=== PATIENT | female | born 1990 | race Caucasian/White ===

== ENCOUNTER 2018-07-09 19:43 | Emergency (ER) | payer MEDICAID ==
--- NOTE | 2018-07-09 19:55 | EDPHY ---
General - History Smoking Status: Never smoked Time Seen by Provider: 07/09/18 19:44 Narrative: CHIEF COMPLAINT: M1 hold HISTORY OF PRESENT ILLNESS: Patient arrives by EMS from the [facility] with reports of M1 hold due to depression and suicidal ideation. M1 was completed by the COOKIE BREAKER at their facility in states that she has been feeling suicidal due to recent loss of her brother. She says that she has felt very hopeless and wanting to and "I just want to join him."She denies any attempt to harm herself today. She does report methamphetamine use nearly 72 hr ago. She reports daily alcohol use and occasional oxycodone use. She does report previous use of Wellbutrin but does not know the formal diagnosis. She is very tearful but consolable. No other associated complaints or modifying factors PSYCHIATRIC DIAGNOSES: Unknown PRIOR PSYCHIATRIC EVALUATIONS: Unknown M1/DETAINER: Today at 3:45 p.m. By COOKIE BREAKER at [facility] REVIEW OF SYSTEMS: Ten systems reviewed and are negative unless otherwise noted in the HPI EXAMINATION General Appearance: Alert, no distress. Unkempt. Ambulatory Head: normocephalic, atraumatic Eyes: Pupils equal and round, no conjunctival pallor or injection ENT, Mouth: Mucous membranes moist Neck: Normal inspection, supple, non-tender Respiratory: Lungs are clear to auscultation Cardiovascular: Regular rate and rhythm Gastrointestinal: Abdomen is soft and nontender Back: non-tender, no bony abnormalities Neurological: GCS 15. A&O, nonfocal, normal gait Skin: Multiple tattoos and piercings. Warm and dry, no rash Extremities: Nontender, no pedal edema Psychiatric: Depressed Mood and affect. Tearful. Admits to suicidal ideation but does not disclose her plan. She does express intent to harm herself if left alone DIFFERENTIAL DIAGNOSES: Including but not limited to suicidal ideation, depression, PTSD, anxiety, grief response MDM: 7:50 p.m. M1 due to suicidal ideation and depression, filled out at the [facility]. Patient admits to these feelings but states that she does not want to act on them. She is asking for help repeatedly. She is calm and cooperative. No agitation or combative behavior. She does admit to methamphetamine use 48 hr ago as well as current alcohol use. Proceed with medical clearance. 8:59 p.m. Patient is medically cleared for evaluation at this time. 10:00 p.m. Patient has been evaluated and recommendation is that she be re-evaluated in the morning. I do feel this is reasonable 11:55 p.m. At this time I have discussed the case with Dr. Valles. He will assume care the patient at this time. Please see his note for final disposition SUPERVISION: Patient was independently examined, but I discussed the case with my secondary supervising physician Dr. Haynes and Dr. Valles. (Mateo,Derek) [id number] care assumed by me from MAYTE Galindo pending mental health evaluation. (Luiz Valles) Medical Decision Makin:30 a.m. the patient has been re-evaluated. She is calm. She denies suicidality. She is going to take a cab over to the outpatient substance abuse program. (Yonatan Haynes) - Objective Vital Signs: Initial Vital Signs Temperature (C) 36.7 C 07/09/18 19:51 Heart Rate 80 07/09/18 19:51 Respiratory Rate 16 07/09/18 19:51 Blood Pressure 117/73 07/09/18 19:51 O2 Sat (%) 97 07/09/18 19:51 O2 Delivery Mode Room Air Allergies/Adverse Reactions: ketorolac tromethamine [From Toradol] Allergy (Verified 12/12/15 18:44) Home Medications: Medication Instructions Recorded Wellbutrin Sr 07/09/18 traZODone 07/09/18 Laboratory Results: Laboratory Results 07/09/18 20:00 07/09/18 20:00 07/09/18 20:00 Sodium 136 mEq/L mEq/L (135-145) Potassium 3.4 mEq/L mEq/L (3.3-5.0) Chloride 100 mEq/L mEq/L (97-110) Carbon Dioxide 30 mEq/l mEq/l (22-31) Anion Gap 6 mEq/L L mEq/L (8-16) BUN 9 mg/dL mg/dL (7-23) Creatinine 0.5 mg/dL L mg/dL (0.6-1.0) Estimated GFR > 60 Glucose 79 mg/dL mg/dL (70-100) Calcium 8.6 mg/dL mg/dL (8.5-10.4) Salicylates < 1.0 mg/dL L mg/dL (2.0-20.0) Acetaminophen < 10 mcg/mL L mcg/mL (10-30) Ethyl Alcohol < 10 mg/dL mg/dL (0-10) Medications Given: Discontinued Medications Lorazepam (Ativan) 1 mg PO EDNOW ONE Stop: 07/10/18 00:50 Last Admin: 07/10/18 00:53 Dose: 1 mg Departure - Departure Disposition: Home, Routine, Self-Care Clinical Impression: Polysubstance abuse Condition: Fair Instructions: Polysubstance Abuse (ED) Referrals: NONE *PRIMARY CARE P,. [Primary Care Provider] - As per Instructions TLC,Coordinate [Mental Health Worker [facility]] - 2-3 days, call for appt.
[2018-07-09 20:19] LABS: PLATELET COUNT 257 10^3/uL (150-400)
--- NOTE | 2018-07-09 22:56 | ASMTLCPROG ---
Notes Note: Notes: TLC started MH evaluation. Pt verbalized inability to keep herself safe if discharged. Pt also made statement she has no place to go and is homeless. She was reluctant to answer questions and kept her eyes shut. Pt appeared alert and orientated but very disinterested. She focused on a variety of physical complaints and stated she is going through withdrawal Given pt.'s inability to express a desire or ability to keep herself safe and lack of cooperation to participate in treatment it would be beneficial to reassess pt in am when a better assessment can be made of pt.'s safety for d/c vs need for admission. Date Signed: 07/09/2018 10:55 PM Electronically Signed By:Verito Carballo
[2018-07-10] MEDS ORDERED: LORazepam 1 MG TAB PO ONE (00:49)
[2018-07-10 07:36] VITALS: BP 104/78
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
--- NOTE | 2018-07-10 09:23 | ASMTTCLDSP ---
TLC Discharge Disposition Disposition: Answers: Discharge If Answers: Yes DISCHARGED: Patient/family given suicide hotline info & SAMHSA brochure? Disposition Notes: Notes: Pt stated willingness to be cab transported to [facility] and commitment or ability to keep self safe, denied thoughts of self harm or harm to others. Pt expressed a desire to f/u with [facility]. Pt was given local hotline information and SAMHSA brochure After an Attempt and cabbed to [facility]. Discharge Concerns/Recommendations: Notes: In consultation with [facility] ED physician, Yonatan Haynes MD, Dr. Haynes concurred that pt does not appear to meet 27-65 criteria requiring psychiatric hospitalization as pt does not appear to be an imminent risk of harm to self/others/gravely disabled due to a mental illness condition. Dr. Haynes provided verbal order read back vacating M1 hold at 0830 hrs. Was patient given the Answers: Not applicable Inpatient Behavioral Health Prohibited Belongings List while in the ED? Psychiatrist vacating M1 Yontaan Haynes MD Hold: Date and time M1 hold 07/10/2018 08:30 AM vacated (time format is hh:mm): Type of Hold: Answers: M1/72-hour Hold Hold initiated by: Answers: Police Date Signed: 07/10/2018 09:22 AM Electronically Signed By:Henry Shafer
== END 2018-07-10 08:41 | disposition home or self-care (01) ==
LOC: EEVIPCON 19:43
DX: R45.851 Suicidal ideations (principal); F15.921 Other stimulant use, unspecified with intoxication delirium
CPT/HCPCS: 80305; G0480

== ENCOUNTER 2018-12-09 05:10 | Emergency (ER) | payer MEDICAID, OTHER ==
[2018-12-09] MEDS ORDERED: NS 1,000 ML IV ONE (05:14)
--- NOTE | 2018-12-09 05:18 | EDPHY ---
H & P Stated Complaint: syncope Source: Patient, EMS, Old records Exam Limitations: No limitations - Personal History Tetanus Vaccine Date: 2009 - Medical/Surgical History Hx Asthma: No Hx Chronic Respiratory Disease: No Hx Diabetes: No Hx Cardiac Disease: No Hx Renal Disease: No Hx Cirrhosis: No Hx Alcoholism: No Hx HIV/AIDS: No Hx Splenectomy or Spleen Trauma: No Other PMH: endometriosis, ovarian cysts, heart murmur ablation, cholecystectomy , SVT, gave nov 15, 2014. - Social History Smoking Status: Never smoked Time Seen by Provider: 12/09/18 05:14 HPI/ROS: HPI The patient presents with syncope, presenting brought in by ambulance from the residential. Patient started taking Seroquel 25 mg nightly 2 nights ago. This morning , she woke up and felt somewhat lightheaded, had a witnessed episode of ALOC in which she fell backwards hitting her head on the floor. When she awoke she felt alert. The nurse was providing wound care to her posterior occipital head wound and she again had a episode of ALOC. She is feeling dizzy when she sits up currently. She does not have any chest pain, palpitations, shortness of breath. She does have a remote history of SVT status post ablation.. REVIEW OF SYSTEMS 10 systems were reviewed and negative with the exception of the elements mentioned in the history of present illness. PMHx: History of SVT status post ablation, taking Wellbutrin and Seroquel Soc Hx: Currently incarcerated PHYSICAL General Appearance: Alert, no distress Eyes: Pupils equal and round no pallor or injection ENT, Mouth: Mucous membranes moist Respiratory: There are no retractions, lungs are clear to auscultation Cardiovascular: Regular rate and rhythm Gastrointestinal: Abdomen is soft and non-tender, no masses, bowel sounds normal Neurological: A&O, moves all extremities Skin: Warm and dry, no rashes Musculoskeletal: Neck is supple non tender Extremities: symmetrical, full range of motion Psychiatric: Patient is oriented X 3, there is no agitation (RiguzziCee) Constitutional: Initial Vital Signs Temperature (C) 36.4 C 12/09/18 05:13 Heart Rate 61 12/09/18 05:13 Respiratory Rate 18 12/09/18 05:13 Blood Pressure 98/56 L 12/09/18 05:13 O2 Sat (%) 96 12/09/18 05:13 O2 Delivery Mode Room Air Allergies/Adverse Reactions: No Known Allergies Allergy (Unverified 12/09/18 05:16) Home Medications: Medication Instructions Recorded Wellbutrin Sr 07/09/18 Seroquel 12/09/18 Medical Decision Making - Diagnostics EKG Interpretation: EKG: Complete interpretation has been separately recorded in the [employer] archive. Summary impression: Normal sinus rhythm (Cee Ortiz) Procedures: LACERATION REPAIR Procedure: Laceration repair. Verbal consent was obtained from the patient. The macerated 2 cm laceration on the posterior occiput was anesthetized using let. The wound was scrubbed, draped and explored to its base with a gloved finger. There were no deep structures involved. No tendon injury was identified. . The wound was repaired with 3 venkatesh. The wound repair was simple. The procedure was performed by myself. (Cee Ortiz) Differential Diagnosis: This is a 28-year-old female with remote history of SVT who presents from the residential after 2 episodes of syncope in the setting of lightheadedness. Here, she has normal vital signs, is generally well-appearing. She has a macerated laceration to her posterior occiput. She is not complaining of a headache. She is given a L of fluid. EKG is performed and shows a normal sinus rhythm. Labs were checked and they are unremarkable demonstrating no anemia, electrolyte disturbance, hypoglycemia, . Her scalp laceration was repaired by me. On reassessment, patient is complaining of a throbbing headache which is bifrontal. She does not want to get out of bed to try to walk now. Given her fall during her syncopal event, I would like to evaluate her for intracranial hemorrhage. I have ordered a CT scan of her head. At 7:00 a.m., case is signed out to the oncoming provider Dr. Rush. Patient will need CT head result prior to discharge. (Cee Ortiz) Other Provider: [id number]: Head CT is negative for acute process. Patient will be discharged back to the residential with Dr. Ortiz's care and follow up instructions. (Keegan Rush) - Data Points Laboratory Results: Laboratory Results 12/09/18 05:15 12/09/18 05:15 12/09/18 12/09/18 12/09/18 05:15 05:15 05:15 WBC 7.38 10^3/uL 10^3/uL (3.80-9.50) RBC 4.22 10^6/uL 10^6/uL (4.18-5.33) Hgb 12.7 g/dL g/dL (12.6-16.3) Hct 38.1 % % (38.0-47.0) MCV 90.3 fL fL (81.5-99.8) MCH 30.1 pg pg (27.9-34.1) MCHC 33.3 g/dL g/dL (32.4-36.7) RDW 13.0 % % (11.5-15.2) Plt Count 218 10^3/uL 10^3/uL (150-400) MPV 9.8 fL fL (8.7-11.7) Neut % (Auto) 41.8 % % (39.3-74.2) Lymph % (Auto) 47.8 % H % (15.0-45.0) Barton % (Auto) 8.0 % % (4.5-13.0) Eos % (Auto) 1.6 % % (0.6-7.6) Baso % (Auto) 0.4 % % (0.3-1.7) Nucleat RBC Rel Count 0.0 % % (0.0-0.2) Absolute Neuts (auto) 3.08 10^3/uL 10^3/uL (1.70-6.50) Absolute Lymphs (auto) 3.53 10^3/uL H 10^3/uL (1.00-3.00) Absolute Monos (auto) 0.59 10^3/uL 10^3/uL (0.30-0.80) Absolute Eos (auto) 0.12 10^3/uL 10^3/uL (0.03-0.40) Absolute Basos (auto) 0.03 10^3/uL 10^3/uL (0.02-0.10) Absolute Nucleated RBC 0.00 10^3/uL 10^3/uL (0-0.01) Immature Gran % 0.4 % % (0.0-1.1) Immature Gran # 0.03 10^3/uL 10^3/uL (0.00-0.10) Sodium 141 mEq/L mEq/L (135-145) Potassium 4.0 mEq/L mEq/L (3.5-5.2) Chloride 106 mEq/L mEq/L (97-110) Carbon Dioxide 24 mEq/l mEq/l (22-31) Anion Gap 11 mEq/L mEq/L (6-14) BUN 13 mg/dL mg/dL (7-23) Creatinine 0.6 mg/dL mg/dL (0.6-1.0) Estimated GFR > 60 Glucose 84 mg/dL mg/dL (70-100) Calcium 9.0 mg/dL mg/dL (8.5-10.4) Beta HCG, Qual NEGATIVE Medications Given: Discontinued Medications Acetaminophen (Tylenol) 1,000 mg PO EDNOW ONE Stop: 12/09/18 06:50 Last Admin: 12/09/18 07:09 Dose: 1,000 mg Sodium Chloride (Ns) 1,000 mls @ 0 mls/hr IV EDNOW ONE; Wide Open PRN Reason: Protocol Stop: 12/09/18 05:15 Last Admin: 12/09/18 05:25 Dose: 1,000 mls Ibuprofen (Motrin) 400 mg PO EDNOW ONE Stop: 12/09/18 06:50 Last Admin: 12/09/18 07:09 Dose: 400 mg Tetracaine/Epinephrine/Lidocaine (Let Gel Topical) 1 ea TP EDNOW ONE Stop: 12/09/18 05:50 Last Admin: 12/09/18 05:51 Dose: 1 ea Departure - Departure Disposition: Law Enforcement/Court/Halfway Clinical Impression: Syncope Qualifiers: Syncope type: unspecified Qualified Code(s): R55 - Syncope and collapse Occipital scalp laceration Qualifiers: Encounter type: initial encounter Qualified Code(s): S01.01XA - Laceration without foreign body of scalp, initial encounter Condition: Good Instructions: Syncope (ED), Staple Care (ED) Additional Instructions: The venkatesh should be removed from her head in 10 days. Please make sure to drink plenty of fluids today. I recommend you avoid taking Seroquel in the future as this may have led to a dizziness that you experience this morning. Referrals: [facility],. [Clinic] - As per Instructions
[2018-12-09 05:30] LABS: PLATELET COUNT 218 10^3/uL (150-400)
[2018-12-09] MEDS ORDERED: LET GEL TOPICAL 1 EA SYR TP ONE (05:49)
[2018-12-09] MEDS ORDERED: IBUPROFEN 200 MG TAB PO ONE (06:49)
[2018-12-09] MEDS ORDERED: ACETAMINOPHEN 500 MG TAB PO ONE (06:49)
--- NOTE | 2018-12-09 07:00 | CPEKG ---
Test Reason : OPEN Blood Pressure : / mmHG Vent. Rate : 056 BPM Atrial Rate : 057 BPM P-R Int : 159 ms QRS Dur : 107 ms QT Int : 463 ms P-R-T Axes : 062 140 078 degrees QTc Int : 447 ms Sinus rhythm LAE, consider biatrial enlargement Right ventricular hypertrophy Nonspecific T abnrm, anterolateral leads Confirmed by Cee Ortiz ([id number]) on 12/09/2018 6:59:53 AM Referred By: PHYSICIAN ED Confirmed By:Cee Ortiz
[2018-12-09 07:55] VITALS: BP 119/62
== END 2018-12-09 08:19 ==
LOC: EDUNIT#
PROC: 0HQ0XZZ Repair Scalp Skin, External Approach (ICD-10-PCS; principal; 2018-12-09)
DX: R55 Syncope and collapse (principal); S01.01XA Laceration without foreign body of scalp, initial encounter; E86.9 Volume depletion, unspecified